=== PATIENT | male | born 1995 | race Caucasian/White ===

== ENCOUNTER 2016-10-21 23:13 | Emergency (ER) | payer OTHER ==
[~2016-10-21] VITALS: Ht 188 cm; Wt 127.0 kg
[2016-10-21 23:17] VITALS: BP 136/64
[2016-10-22] MEDS ORDERED: ALBUTEROL FS 2.5 MG/3 ML VIAL.NEB NEB ONE
[2016-10-22] MEDS ORDERED: ALBUTEROL FS 2.5 MG/3 ML VIAL.NEB ONE ×2 (00:01→01:10)
[2016-10-22] MEDS ORDERED: DEXAMETHASONE SOD PHOSPHATE 10 MG/ML VIAL ONE (00:57)
[2016-10-22] MEDS ORDERED: DEXAMETHASONE SOD PHOSPHATE 4 MG/ML VIAL IM ONE (01:00)
[2016-10-22] MEDS ORDERED: ALBUTEROL FS 2.5 MG/3 ML VIAL.NEB CONTNEB ONE ×2 (01:00→01:30)
[2016-10-22] MEDS ORDERED: IPRATROPIUM NEB FS 0.5 MG/2.5 ML AMPUL.NEB ONE (01:10)
[2016-10-22] MEDS ORDERED: IPRATROPIUM NEB FS 0.5 MG/2.5 ML AMPUL.NEB NEB ONE (01:30)
[2016-10-22] MEDS ORDERED: DEXAMETHASONE 1 MG TABLET PO ONE (01:30)
== END 2016-10-22 02:09 | disposition home or self-care (01) ==
LOC: ER 23:16
DX: J20.9 Acute bronchitis, unspecified (principal); F17.200 Nicotine dependence, unspecified, uncomplicated
CPT/HCPCS: 71010; 94640 ×2; 99284; A4606; J1100; Z7610

== ENCOUNTER 2017-04-03 05:17 | Emergency (ER) | payer OTHER ==
[~2017-04-03] VITALS: Ht 188 cm; Wt 124.3 kg
--- NOTE | 2017-04-03 05:25 | NUR ---
To bed 5 a 22 yo male patient bibmother and patient c/o sob since midnight, patient with history of asthma, wheezing noted, satting at 93-94% on room air, coughing noted. Kept hob elevated. Initiated comfort measures. Gowned. Ongoing VS monitoring on. Awaitng for er md denise.
--- NOTE | 2017-04-03 05:29 | NUR ---
Dr Noel at bedside.
[2017-04-03] MEDS ORDERED: DEXAMETHASONE SOD PHOSPHATE 4 MG/ML VIAL IM ONE (05:30)
[2017-04-03] MEDS ORDERED: ALBUTEROL FS 2.5 MG/0.5 ML VIAL.NEB NEB ONE (05:30)
[2017-04-03] MEDS ORDERED: IPRATROPIUM NEB FS 0.5 MG/2.5 ML AMPUL.NEB NEB ONE (05:30)
[2017-04-03] MEDS ORDERED: DEXAMETHASONE SOD PHOSPHATE 10 MG/ML VIAL ONE (05:32)
[2017-04-03] MEDS ORDERED: IPRATROPIUM NEB FS 0.5 MG/2.5 ML AMPUL.NEB ONE (05:34)
[2017-04-03] MEDS ORDERED: ALBUTEROL FS 2.5 MG/0.5 ML VIAL.NEB ONE (05:34)
--- NOTE | 2017-04-03 05:35 | NUR ---
radiology technician at bedside for cxr.
--- NOTE | 2017-04-03 05:41 | NUR ---
RT at bedside for breathing treatments.
--- NOTE | 2017-04-03 05:53 | NUR ---
Patient discharged to home in stable condition. Written and verbal after care instructions given. Patient verbalizes understanding of instruction. Patient is albulatory with steady gait, no further complaints.
[2017-04-03 05:55] VITALS: BP 125/89
== END 2017-04-03 06:02 | disposition home or self-care (01) ==
LOC: ER 05:21
DX: J98.01 Acute bronchospasm (principal); F17.200 Nicotine dependence, unspecified, uncomplicated
CPT/HCPCS: 71010; 94640; 96372; 99284; A4606 ×2; J1100; Z7610 ×2

== ENCOUNTER 2017-05-20 11:12 | Emergency (ER) | payer OTHER ==
[~2017-05-20] VITALS: Ht 188 cm; Wt 121.1 kg
[2017-05-20 11:12] VITALS: BP 134/85
== END 2017-05-20 13:13 | disposition home or self-care (01) ==
LOC: ER 11:13
DX: R06.2 Wheezing (principal); J45.909 Unspecified asthma, uncomplicated; F17.210 Nicotine dependence, cigarettes, uncomplicated; Z88.0 Allergy status to penicillin; Z76.0 Encounter for issue of repeat prescription
CPT/HCPCS: A4606; Z7610

== ENCOUNTER 2017-06-02 00:25 | Emergency (ER) | payer OTHER ==
[~2017-06-02] VITALS: Ht 185.4 cm; Wt 108.9 kg
--- NOTE | 2017-06-02 00:31 | NUR ---
mindy wayne at bedside to camelia albrecht.
[2017-06-02 00:35] VITALS: BP 156/76
== END 2017-06-02 01:51 | disposition home or self-care (01) ==
LOC: ER 00:26
DX: J45.901 Unspecified asthma with (acute) exacerbation (principal); F17.210 Nicotine dependence, cigarettes, uncomplicated; Z88.0 Allergy status to penicillin
CPT/HCPCS: 94640; 99283; A4606; Z7610

== ENCOUNTER 2017-07-05 01:07 | Emergency (ER) | payer OTHER ==
[~2017-07-05] VITALS: Ht 182.9 cm; Wt 90.7 kg
[2017-07-05 01:21] VITALS: BP 161/89
== END 2017-07-05 01:28 | disposition home or self-care (01) ==
LOC: ER 01:11
DX: Z76.0 Encounter for issue of repeat prescription (principal); J45.909 Unspecified asthma, uncomplicated; F17.200 Nicotine dependence, unspecified, uncomplicated; Z88.0 Allergy status to penicillin
CPT/HCPCS: A4606; Z7610

== ENCOUNTER 2017-07-22 21:32 | Emergency (ER) | payer OTHER ==
[~2017-07-22] VITALS: Ht 185.4 cm; Wt 127.0 kg
--- NOTE | 2017-07-22 21:40 | NUR ---
TO BED 6 A 22 YO MALE PATIENT BIBSELF C/O ASTHMA ATTACK X YESTERDAY, BEEN USING INHALERS SINCE YESTERDAY W/ NO RELIEF. AIRWAY PATENCY MAINTAINED. KEPT HOB ELEVATED. PLACED ON CARDIAC AND VS MONITORING. GOWNED. COMFORT MEASURES RENDERED. RT PAGED.
[2017-07-22] MEDS ORDERED: ALBUTEROL FS 2.5 MG/3 ML VIAL.NEB ONE (21:43)
[2017-07-22] MEDS ORDERED: IPRATROPIUM NEB FS 0.5 MG/2.5 ML AMPUL.NEB ONE (21:43)
[2017-07-22] MEDS ORDERED: DEXAMETHASONE SOD PHOSPHATE 10 MG/ML VIAL ONE (21:44)
[2017-07-22] MEDS ORDERED: ACETAMINOPHEN 325 MG TABLET ONE (21:44)
--- NOTE | 2017-07-22 21:48 | NUR ---
medicated patient as ordered by Kendell Ragland. Ongoing breathing treatment by RT. Will closely monitor patient.
[2017-07-22] MEDS ORDERED: DEXAMETHASONE SOD PHOSPHATE 4 MG/ML VIAL IM ONE (22:00)
[2017-07-22] MEDS ORDERED: ALBUTEROL FS 2.5 MG/3 ML VIAL.NEB CONTNEB ONE (22:00)
[2017-07-22] MEDS ORDERED: ACETAMINOPHEN 325 MG TABLET PO ONE (22:00)
[2017-07-22] MEDS ORDERED: predniSONE 20 MG TABLET PO ONE (22:00)
[2017-07-22] MEDS ORDERED: IPRATROPIUM NEB FS 0.5 MG/2.5 ML AMPUL.NEB NEB ONE (22:00)
[2017-07-22] MEDS ORDERED: IV NS 0.9% 1,000 ML BAG IV ONE (22:30)
--- NOTE | 2017-07-22 22:40 | NUR ---
xr at bedside.
--- NOTE | 2017-07-22 23:18 | NUR ---
IV removed. Catheter intact and site benign. Pressure and 4x4 applied to site. No bleeding noted.
[2017-07-22 23:19] VITALS: BP 144/82
--- NOTE | 2017-07-22 23:19 | NUR ---
Patient discharged to home in stable condition. Written and verbal after care instructions given. Patient verbalizes understanding of instruction. Patient is ambulatory with steady gait, no further complaints. Nad noted. vss.
== END 2017-07-22 23:20 | disposition home or self-care (01) ==
LOC: ER 21:36
DX: J45.901 Unspecified asthma with (acute) exacerbation (principal); F10.10 Alcohol abuse, uncomplicated; F17.210 Nicotine dependence, cigarettes, uncomplicated; Z88.0 Allergy status to penicillin
CPT/HCPCS: 71010; 94640 ×2; 96360; 96372; 99284; A4606; J1100; J7030; Z7610

== ENCOUNTER 2017-10-07 15:52 | Emergency (ER) | payer OTHER ==
[~2017-10-07] VITALS: Ht 188 cm; Wt 122.5 kg
--- NOTE | 2017-10-07 16:00 | NUR ---
PRESENTS TO ER C/O COUGH AND SOB. PATIENT IS A/O X 4. BREATHING EVEN AND UNLABORED. NAD, BUT LOW SATURATIONS AT 92%. SAFETY AND COMFORT MEASURES IN PLACE. AWAITING MD ORDERS.
[2017-10-07] MEDS ORDERED: ALBUTEROL FS 2.5 MG/3 ML VIAL.NEB CONTNEB ONE (17:00)
[2017-10-07] MEDS ORDERED: IPRATROPIUM NEB FS 0.5 MG/2.5 ML AMPUL.NEB NEB ONE (17:00)
[2017-10-07] MEDS ORDERED: predniSONE 20 MG TABLET PO ONE (17:00)
--- NOTE | 2017-10-07 17:20 | NUR ---
RT AT BEDSIDE FOR BREATHING TX.
[2017-10-07] MEDS ORDERED: predniSONE 20 MG TABLET ONE (17:27)
[2017-10-07] MEDS ORDERED: IPRATROPIUM NEB FS 0.5 MG/2.5 ML AMPUL.NEB ONE (17:30)
[2017-10-07] MEDS ORDERED: ALBUTEROL FS 2.5 MG/3 ML VIAL.NEB ONE (17:30)
--- NOTE | 2017-10-07 19:16 | NUR ---
REPORT GIVEN TO MICHELLE OLIVIA FOR LEONEL.
--- NOTE | 2017-10-07 19:52 | NUR ---
Patient discharged to home in stable condition. Written and verbal after care instructions given. Patient verbalizes understanding of instruction. Patient is ambulatory with steady gait. vss. nad noted on dc. No further complaints.
[2017-10-07 19:53] VITALS: BP 150/80
== END 2017-10-07 19:53 | disposition home or self-care (01) ==
LOC: ER 16:01
DX: J44.9 Chronic obstructive pulmonary disease, unspecified (principal); Z88.0 Allergy status to penicillin; F17.210 Nicotine dependence, cigarettes, uncomplicated
CPT/HCPCS: 71045; 94644; 99285; 99406; A4606; J7512; Z7610

== ENCOUNTER 2017-10-27 22:21 | Inpatient (IN) | payer OTHER ==
[~2017-10-27] VITALS: Ht 170.2 cm; Wt 127.0 kg
[2017-10-27] MEDS ORDERED: ALBUTEROL FS 2.5 MG/0.5 ML VIAL.NEB NEB ONE ×2 (22:30)
[2017-10-27] MEDS ORDERED: DEXAMETHASONE SOD PHOSPHATE 4 MG/ML VIAL IM ONE (22:30)
[2017-10-27] MEDS ORDERED: ACETAMINOPHEN 325 MG TABLET PO ONE (22:30)
[2017-10-27] MEDS ORDERED: IPRATROPIUM NEB FS 0.5 MG/2.5 ML AMPUL.NEB NEB ONE (22:30)
[2017-10-27] MEDS ORDERED: IPRATROPIUM NEB FS 0.5 MG/2.5 ML AMPUL.NEB ONE (22:35)
[2017-10-27] MEDS ORDERED: ALBUTEROL FS 2.5 MG/3 ML VIAL.NEB ONE (22:35)
[2017-10-27] MEDS ORDERED: DEXAMETHASONE SOD PHOSPHATE 10 MG/ML VIAL ONE (22:53)
[2017-10-27] MEDS ORDERED: ACETAMINOPHEN ES 500 MG TABLET ONE (22:54)
[2017-10-27] MEDS ORDERED: Magnesium 1GM/D5W 100ML PREMIX 200 ML IV ONE ×2 (23:29→23:39)
[2017-10-27 23:58] LABS: CALCIUM, SERUM 9.3 mg/dL (8.5-10.1); CREATININE 0.9 mg/dL (0.6-1.3); POTASSIUM 4.1 mmol/L (3.5-5.1)
[2017-10-28 00:03] LABS: BASOPHILS # (AUTO) 0.1 /CMM (0.0-0.2); BASOPHILS % (AUTO) 0.5 % (0.0-2.0); EOSINOPHILS # (AUTO) 0.8 /CMM (0.0-0.7); EOSINOPHILS % (AUTO) 4.6 % (0.0-6.0); HEMATOCRIT 45 % (39-51); HEMOGLOBIN 15.4 g/dL (13.5-17.5); LYMPHOCYTES # (AUTO) 2.4 /CMM (0.8-4.8); LYMPHOCYTES % (AUTO) 14.6 % (20.0-44.0); MEAN CORPUSCULAR HEMOGLOBIN 27 PG (26.0-33.0); MEAN CORPUSCULAR HGB CONC 34 g/dl (31.0-36.0); MEAN CORPUSCULAR VOLUME 80 fL (80-96); MONOCYTES # (AUTO) 1.2 /CMM (0.1-1.30); MONOCYTES % (AUTO) 7.4 % (2.0-12.0); NEUTROPHILS % (AUTO) 72.9 % (43.0-81.0); PLATELET COUNT (AUTO) 118 /CMM (150-450); RDW COEFFICIENT OF VARIATION 14.9 (11.5-15.0); RED BLOOD CELL COUNT(AUTO) 5.65 MIL/uL (4.5-6.0); WHITE BLOOD COUNT (AUTO) 16.5 K/uL (4.3-11.0)
[2017-10-28 00:30] VITALS: BP 151/82
[2017-10-28] MEDS ORDERED: Z GUARD REMEDY 2 OZ OINT TP PRN (01:00)
[2017-10-28] MEDS ORDERED: ACETAMINOPHEN 325 MG TABLET PO PRN (01:00)
[2017-10-28] MEDS ORDERED: HYDROCODONE/APAP 5/325MG 1 EACH TABLET PO PRN (01:00)
[2017-10-28] MEDS ORDERED: MAGNESIUM HYDROXIDE 30 ML UDC PO PRN (01:00)
[2017-10-28] MEDS ORDERED: MAG HYDROX/AL HYDROX/SIMETH 30 ML UDC PO PRN (01:00)
[2017-10-28] MEDS ORDERED: ZOLPIDEM TARTRATE 5 MG TABLET PO PRN (01:00)
[2017-10-28] MEDS ORDERED: ONDANSETRON HCL/PF 4 MG/2 ML VIAL IVP PRN (01:00)
[2017-10-28] MEDS ORDERED: ALBUTEROL FS 2.5 MG/0.5 ML VIAL.NEB NEB PRN (01:00)
[2017-10-28] MEDS ORDERED: LORAZEPAM 1 MG TABLET PO PRN (01:00)
[2017-10-28] MEDS ORDERED: GUAIFENESIN/D-METHORPHAN HB 5 ML UDC ONE (03:55)
[2017-10-28 04:00] VITALS: BP 152/89
[2017-10-28] MEDS ORDERED: GUAIFENESIN/D-METHORPHAN HB 5 ML UDC PO PRN (04:00)
[2017-10-28] MEDS ORDERED: GUAIFENESIN/CODEINE 10 ML UDC PO PRN (04:00)
[2017-10-28 08:00] VITALS: BP 149/96
[2017-10-28] MEDS: methylPREDNISolone SOD SUCC 125 MG/2ML VIAL IV SCH ×3 (08:57→16:24)
[2017-10-28 16:00] VITALS: BP 142/81
== END 2017-10-28 16:58 | disposition left against medical advice (07) | DRG 141 ==
LOC: ER 22:22 → TELE1 10-28 00:14 → MEDSG1 10-28 00:39
PROVIDERS: ADMIT Internal Medicine; ATTEND Internal Medicine
DX: J45.901 Unspecified asthma with (acute) exacerbation (principal); J96.01 Acute respiratory failure with hypoxia; Z68.41 Body mass index [BMI] 40.0-44.9, adult; E66.01 Morbid (severe) obesity due to excess calories; D69.6 Thrombocytopenia, unspecified; Z88.0 Allergy status to penicillin; D72.829 Elevated white blood cell count, unspecified
CPT/HCPCS: 36415; 71045-TC; 80048-TC; 85025-TC; 87081-TC; 87400; A4606; J1100; J2930; J3475; Z7610

== ENCOUNTER 2017-11-19 01:07 | Emergency (ER) | payer OTHER ==
[~2017-11-19] VITALS: Ht 188 cm; Wt 104.3 kg
[2017-11-19 01:36] VITALS: BP 156/88
== END 2017-11-19 03:52 | disposition home or self-care (01) ==
LOC: ER 01:14
DX: J45.901 Unspecified asthma with (acute) exacerbation (principal); F10.10 Alcohol abuse, uncomplicated; Z87.891 Personal history of nicotine dependence; Z88.0 Allergy status to penicillin
CPT/HCPCS: A4606; Z7610

== ENCOUNTER 2017-12-18 00:32 | Emergency (ER) | payer OTHER ==
[~2017-12-18] VITALS: Ht 188 cm; Wt 127.0 kg
[2017-12-18 00:41] VITALS: BP 133/88
[2017-12-18] MEDS ORDERED: DEXAMETHASONE SOD PHOSPHATE 4 MG/ML VIAL IM ONE (01:00)
[2017-12-18] MEDS ORDERED: ALBUTEROL FS 2.5 MG/0.5 ML VIAL.NEB NEB ONE (01:00)
== END 2017-12-18 01:11 | disposition home or self-care (01) ==
LOC: ER 00:33
DX: J45.909 Unspecified asthma, uncomplicated (principal); F12.90 Cannabis use, unspecified, uncomplicated; F10.10 Alcohol abuse, uncomplicated; F17.210 Nicotine dependence, cigarettes, uncomplicated; Z88.0 Allergy status to penicillin
CPT/HCPCS: 99283; A4606; Z7610

== ENCOUNTER 2018-11-23 20:09 | Emergency (ER) | payer OTHER ==
[~2018-11-23] VITALS: Ht 177.8 cm; Wt 113.4 kg
--- NOTE | 2018-11-23 20:40 | NUR ---
PT PRESENTED TO THE ER WITH A C/O ASTHMA EXACERBATION. PT STATED THAT HE IS OUT OF HIS INHALER AND HIS INSURANCE SWITCHED HIS PMD. PT HAS NOT BEEN ABLE TO GET INTO SEE HIS PMD. PT HAS BILATERAL WHEEZES. RESP ARE EVEN AND UNLABORED. PT IS ON THE MONITOR AND CONTINUOUS PULSE OX. WILL CONTINUE TO MONITOR THE PT.
[2018-11-23] MEDS ORDERED: IPRATROPIUM NEB FS 0.5 MG/2.5 ML AMPUL.NEB NEB ONE (21:00)
[2018-11-23] MEDS ORDERED: ALBUTEROL FS 2.5 MG/3 ML VIAL.NEB NEB ONE (21:00)
[2018-11-23] MEDS ORDERED: predniSONE 20 MG TABLET PO ONE (21:00)
[2018-11-23] MEDS ORDERED: ALBUTEROL FS 2.5 MG/0.5 ML VIAL.NEB ONE (21:09)
[2018-11-23] MEDS ORDERED: IPRATROPIUM NEB FS 0.5 MG/2.5 ML AMPUL.NEB ONE (21:09)
[2018-11-23] MEDS ORDERED: predniSONE 20 MG TABLET ONE (21:11)
--- NOTE | 2018-11-23 21:15 | NUR ---
PT IS ON A BREATHING TX.
--- NOTE | 2018-11-23 21:39 | NUR ---
BREATHING TX FINISHED. PT'S O2 SAT IS 96% ON RA. PT HAS SLIGHTL BILATERAL WHEEZES. PT IS ON THE MONITOR AND CONTINUOUS PULSE OX.
--- NOTE | 2018-11-23 22:10 | NUR ---
Patient discharged to home in stable condition. Written and verbal after care instructions given. Patient verbalizes understanding of instruction AND RX. PT AMBULATED OUT WITH A STEADY GAIT. VSS. NAD NOTED. RESP ARE EVEN AND UNLABORED.
[2018-11-23 22:23] VITALS: BP 143/82
== END 2018-11-23 22:24 | disposition home or self-care (01) ==
LOC: ER 20:19
DX: J45.909 Unspecified asthma, uncomplicated (principal); F17.210 Nicotine dependence, cigarettes, uncomplicated; Z88.0 Allergy status to penicillin
CPT/HCPCS: 94644; 99285; J7512

== ENCOUNTER 2024-01-20 12:35 | Emergency (ER) | payer MEDICAID, OTHER ==
[~2024-01-20] VITALS: Ht 188 cm; Wt 104.3 kg
[2024-01-20] MEDS ORDERED: predniSONE 20 MG TABLET ONE (13:59)
[2024-01-20] MEDS: predniSONE 20 MG TABLET PO ONE (14:03)
[2024-01-20] MEDS ORDERED: IPRATROPIUM NEB FS 0.5 MG/2.5 ML AMPUL.NEB ONE (14:07)
[2024-01-20] MEDS ORDERED: ALBUTEROL FS 2.5 MG/3 ML VIAL.NEB ONE (14:07)
[2024-01-20 14:15] VITALS: O2SAT 96
[2024-01-20] MEDS: ALBUTEROL FS 2.5 MG/3 ML VIAL.NEB CONTNEB ONE (14:15)
[2024-01-20] MEDS: IPRATROPIUM NEB FS 0.5 MG/2.5 ML AMPUL.NEB NEB ONE (14:15)
[2024-01-20 15:05] VITALS: O2SAT 99
[2024-01-20] MEDS ORDERED: PRED20TA PO (15:10)
[2024-01-20] MEDS ORDERED: ALBU18HF2 INH (15:10)
[2024-01-20 15:21] VITALS: BP 136/85; TEMP 98; O2SAT 99
== END 2024-01-20 15:25 | disposition home or self-care (01) ==
LOC: ER 12:42
DX: J45.901 Unspecified asthma with (acute) exacerbation (principal); F10.10 Alcohol abuse, uncomplicated; F17.210 Nicotine dependence, cigarettes, uncomplicated; Z88.0 Allergy status to penicillin; Y90.9 Presence of alcohol in blood, level not specified
CPT/HCPCS: 99285; 94644; J7512